=== PATIENT | male | born 1975 | race Caucasian/White ===

== ENCOUNTER 2023-01-04 04:17 | Emergency (ER) | payer BC, OTHER ==
[~2023-01-04] VITALS: Ht 188 cm; Wt 104.3 kg
[~2023-01-04 04:17] MED LIST: INDOCIN25 MG PO; Z.0.CELEXA20 MG PO; Z.0.CLONAZEPAM0.5 MG PO
[2023-01-04 04:23] VITALS: O2SAT 99
[2023-01-04] MEDS ORDERED: HYDROXYZINE HCL25 MG PO (04:43)
== END 2023-01-04 04:57 | disposition home or self-care (01) ==
LOC: ER 04:23
DX: F41.9 Anxiety disorder, unspecified (principal); I10 Essential (primary) hypertension; F17.210 Nicotine dependence, cigarettes, uncomplicated
CPT/HCPCS: 99282